=== PATIENT | male | born 1960 | race American Indian/Alaskan Native ===

== ENCOUNTER 2017-01-26 15:34 | Emergency (ER) | payer OTHER, BC ==
[2017-01-26 15:43] VITALS: BP 150/71; PULSE 98; TEMP 99.3; BMI 33.3
[2017-01-26] MEDS ORDERED: OXYCODONE/APAP 5/325MG COMBO TABLET PO ONE (15:55)
[2017-01-26] MEDS ORDERED: OXYCODONE/APAP 5/325MG COMBO TABLET ONE (15:59)
--- NOTE | 2017-01-26 16:02 | PDOC ---
Suture Removal/Wound Check HPI - History of Present Illness Chief Complaint: Pain Stated Complaint: LACERATION Time Seen by Provider: 01/26/17 15:44 History Source: Yes: Patient Exam Limitations: Yes: No Limitations Treated at: [facility] Date of Last ED visit: 01/26/17 - Previous ED Treatment Type of procedure performed on last visit: Yes: Laceration Repair (left palm) Antibiotics Prescribed: Yes - Onset of Previous Treatment Comment:: 01/26/17 16:03 pt seen in ER earlier today for laceration repair to left hand. Pt states pain 10/10 needs pain medication. Past History - Past Medical History Allergies/Adverse Reactions: Allergies christopher flavor Allergy (Verified 01/26/17 15:39) Itching strawberry Allergy (Verified 01/26/17 15:39) Itching cherries Allergy (Uncoded 01/26/17 15:39) Itching strawberries Allergy (Uncoded 01/26/17 15:39) Itching Home Medications: Ambulatory Orders Cephalexin [Keflex] 500 mg PO TID #15 capsule 01/26/17 Oxycodone HCl/Acetaminophen [Percocet 5-325 mg Tablet] 1 - 2 tab PO Q4H PRN #16 tablet MDD 8 tabs 01/26/17 General: Yes: no pertinent history, other (carpal tunnel release, ulna nerve repair left hand and wrist) Surgical History: Yes: Other (RLE SURGERY) Psych History: Yes: No Pertinent Psych Hx. - Immunization History Immunizations Up to Date: Yes - Social History Smoking History: No Smoking Status: Never smoked Number of Ciarettes Per Day: 0 Alcohol Use: occasionally Drug Use: none Suture Removal/Wound Check PE - Physical Exam Laceration/Wound Check Symptoms: reports: Pain Comments: 01/26/17 16:03 c/o pain 10/10 left hand at suture site Maximum Severity Level: Severe (middle digit left hand nv intact, limited rom of middle and ring finger due to pain) Comments: 01/26/17 16:04 left palm 2 lacerations repaired with simple interrupted sutures *Review of Systems - Review of Systems Able to Perform ROS?: Yes Constitutional: No: Symptoms Reported HEENTM: No: Symptoms Reported Respiratory: No: Symptoms reported Cardiac (ROS): No: Symptoms Reported ABD/GI: No: Symptoms Reported : No: Symptoms Reported Integumentary: Yes: See HPI Procedures - Additional Procedures Progress: 01/26/17 16:05 wound was inspected, no redness no drainage no swelling, re dressed with sterile dressing Medical Decision Making - Medical Decision Making 01/26/17 16:05 cc: pain s/p palm laceration pt states he has a hand surgeon he will will follow with next week pt agreed to xray now (initially had refused it ) will r/o fb percocet for pain 01/26/17 17:03 preliminary reading is negative on xray. I have discussed with and the pt that official read will be in within 24hrs we will call if any change noted. all dc inst given, sling was placed to elevate the hand. Pt is more comfortable on discharge. *DC/Admit/Observation/Transfer Diagnosis at time of Disposition: Encounter for wound re-check - Discharge Dispostion Disposition: HOME Condition at time of disposition: Good - Prescriptions Prescriptions: Oxycodone HCl/Acetaminophen [Percocet 5-325 mg Tablet] 1 - 2 tab PO Q4H PRN #16 tablet MDD 8 tabs PRN Reason: Severe Pain - Referrals Referrals: Iggy Nunez MD [Primary Care Provider] - - Patient Instructions Additional Instructions: follow with your hand surgeon next week keep elevated in the sling take the percocet for severe pain as directed DO NOT DRIVE, OPERATE MACHINERY OR DRINK ALCOHOL WHILE TAKING THIS MEDICATION continue the antibiotics
[2017-01-26] MEDS ORDERED: KETOROLAC TROMETHAMINE 60 MG/2 ML VIAL IM ONE (16:12)
[2017-01-26] MEDS ORDERED: KETOROLAC TROMETHAMINE 60 MG/2 ML VIAL ONE (16:33)
== END 2017-01-26 16:39 | disposition home or self-care (01) ==
LOC: JERFT 15:34
DX: Z09 Encounter for follow-up examination after completed treatment for conditions other than malignant neoplasm (principal); S61.412D Laceration without foreign body of left hand, subsequent encounter
CPT/HCPCS: 73130-TC-LT; 99281-25; 99282-25

== ENCOUNTER 2017-01-29 08:37 | Emergency (ER) | payer OTHER, BC ==
[2017-01-29 08:53] VITALS: BP 131/63; PULSE 64; TEMP 98; BMI 33.3
--- NOTE | 2017-01-29 09:14 | PDOC ---
Suture Removal/Wound Check HPI - History of Present Illness Chief Complaint: Revisit,Wound Recheck Stated Complaint: REVISIT/ INFECTED LT HAND Time Seen by Provider: 01/29/17 08:55 History Source: Yes: Patient Treated at: [facility] Date of Last ED visit: 01/26/17 - Previous ED Treatment Type of procedure performed on last visit: Yes: Laceration Repair Tetanus Immunization: Yes: Given at last ED visit Antibiotics Prescribed: Yes (keflex) Past History - Past Medical History Allergies/Adverse Reactions: Allergies christopher flavor Allergy (Verified 01/29/17 08:40) Itching strawberry Allergy (Verified 01/29/17 08:40) Itching cherries Allergy (Uncoded 01/29/17 08:40) Itching strawberries Allergy (Uncoded 01/29/17 08:40) Itching Home Medications: Ambulatory Orders Cephalexin [Keflex] 500 mg PO TID #15 capsule 01/26/17 Oxycodone HCl/Acetaminophen [Percocet 5-325 mg Tablet] 1 - 2 tab PO Q4H PRN #16 tablet MDD 8 tabs 01/26/17 Oxycodone HCl/Acetaminophen [Percocet 5-325 mg Tablet] 1 - 2 tab PO Q6H PRN #10 tab MDD 6 01/29/17 Sulfamethoxazole/Trimethoprim [Bactrim Ds Tablet] 1 each PO BID #20 tablet 01/29 General: Yes: no pertinent history Surgical History: Yes: Other (RLE SURGERY) - Immunization History Immunizations Up to Date: Yes - Social History Smoking History: No Smoking Status: Never smoked Number of Ciarettes Per Day: 0 Alcohol Use: occasionally Drug Use: none Suture Removal/Wound Check PE - Physical Exam Laceration/Wound Check Symptoms: reports: Discharge (foul smelling green discharge) Comments: 01/29/17 09:17 greenish drainage from wound Pain Intensity: 8 Comments: 01/29/17 09:17 left palm with 2 lacerations sutured closed. one laceration has 4 simple sutures and greenish foul smelling discharge. no redness no streaking no fluctuant abscess Procedures - Incision and Drainage I&D Site: Left: Other (palm) Betadine cleansed: Yes Progress: 01/29/17 09:18 sutures removed wound irrigated with copious amounts of betadine and peroxide and salline no abscess wound culture obtained and sent sterile dressing applied pt has limited ROM to middle digit which is chronic from the initial injury pt states the pain has improved neg numbness or tingling. Medical Decision Making - Medical Decision Making 01/29/17 09:19 cc: wound check infected wound without surrounding cellulitus or abscess sutures removed wound culture obtained wound irrigated sterile dressing placed added Bactrim to the keflex pt asked for more percocet will give 10 pills pt has apt with (pt's own hand surgeon in [place]) pt and agree with plan pt is NOT TO USE left hand around the house, yard work or any thing strenuous. pt is to rest the hand and keep clean and dry *DC/Admit/Observation/Transfer Diagnosis at time of Disposition: Encounter for wound re-check - Discharge Dispostion Disposition: HOME Condition at time of disposition: Good - Prescriptions Prescriptions: Sulfamethoxazole/Trimethoprim [Bactrim Ds Tablet] 1 each PO BID #20 tablet Oxycodone HCl/Acetaminophen [Percocet 5-325 mg Tablet] 1 - 2 tab PO Q6H PRN #10 tab MDD 6 PRN Reason: Severe Pain - Patient Instructions Additional Instructions: follow with on thr as scheduled avoid using the hand to do strenuous work Let the wound air dry you should wash the wound with antibacterial soap and water once a day no peroxide take Bactrim as directed take percocet for sever pain take motrin for mild to moderate pain Return if any fever, chills, redness streaking up hand or arm or any other concerns
== END 2017-01-29 09:23 | disposition home or self-care (01) ==
LOC: JER 08:37 → JERFT 08:37
DX: S61.412D Laceration without foreign body of left hand, subsequent encounter (principal); L08.9 Local infection of the skin and subcutaneous tissue, unspecified; X58.XXXD Exposure to other specified factors, subsequent encounter; Y92.89 Other specified places as the place of occurrence of the external cause; Z48.02 Encounter for removal of sutures
CPT/HCPCS: 87070; 87205; 99281-25

== ENCOUNTER 2017-08-21 20:45 | Emergency (ER) | payer OTHER, BC ==
--- NOTE | 2017-08-21 21:05 | PDOC ---
Rapid Medical Evaluation Chief Complaint: Back Pain Time Seen by Provider: 08/21/17 21:01 Medical Evaluation: Allergies Allergy/AdvReac Type Severity Reaction Status Date / Time christopher flavor Allergy Itching Verified 08/21/17 20:54 strawberry Allergy Itching Verified 08/21/17 20:54 cherries Allergy Itching Uncoded 08/21/17 20:54 strawberries Allergy Itching Uncoded 08/21/17 20:54 08/21/17 21:01 I have performed a brief in-person evaluation of this patient. The patient presents with a chief complaint of: Back Pain Pertinent physical exam findings: Patient unable to stand. I have ordered the following: The patient will proceed to the ED for further evaluation. Dr. Octavio Quijano MD ([facility]). 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
[2017-08-21 21:10] VITALS: BP 154/80; PULSE 81; TEMP 97.9; BMI 30.8
--- NOTE | 2017-08-21 22:25 | PDOC ---
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 Patient report taking Celebrex, Gabapentin, Voltoren for pain management, prescribed by his Orthopedist Dr. Octavio Quijano. He denies recently injury, fall, or trauma, CP, Abd pain, n/v/d, SOB, diff breathing, fever, rash, dysuria, hematuria, or any other complaints at this time. Associated left groin pain w/o dysuria or rectal bleeding. Occurred: reports: other (3 days.). denies: just prior to arrival, this morning , this afternoon, this evening, yesterday, last week Severity: reports: moderate. denies: mild, severe Pain Location: reports: lower extremity, other (Groin). denies: none, abdomen, back, chest, face, head, mouth, neck, pelvis, upper extremity Method of Injury: Yes: other (See HPI). No: unknown, assault, direct blow, fall , motor vehicle crash Modifying Factors: improves with: pain medication. worse with: None, cold therapy, immobilization, rest, other Past History - Travel Traveled outside of the country in the last 30 days: No Close contact w/someone who was outside of country & ill: No - Past Medical History Allergies/Adverse Reactions: Allergies Allergy/AdvReac Type Severity Reaction Status Date / Time christopher flavor Allergy Itching Verified 08/21/17 20:54 strawberry Allergy Itching Verified 08/21/17 20:54 cherries Allergy Itching Uncoded 08/21/17 20:54 strawberries Allergy Itching Uncoded 08/21/17 20:54 Home Medications: Ambulatory Orders Acetaminophen [Tylenol] 650 mg PO QID PRN 08/21/17 Celecoxib [Celebrex -] 200 mg PO BID 08/21/17 Diazepam [Valium] 10 mg PO TID PRN #12 tablet MDD 3 tabs 08/22/17 Methocarbamol [Robaxin -] 500 mg PO TID PRN #21 tablet MDD 3 tabs 08/22/17 Oxycodone HCl/Acetaminophen [Endocet 7.5-325 mg Tablet] 1 each PO Q6H PRN #20 tablet MDD 4 tabs 08/22/17 Anemia: No Asthma: No Cancer: No Cardiac Disorders: No CVA: No COPD: No CHF: No Dementia: No Diabetes: No GI Disorders: No Disorders: No HTN: No Hypercholesterolemia: No Liver Disease: No Seizures: No Thyroid Disease: No - Surgical History Abdominal Surgery: No Appendectomy: No Cardiac Surgery: No Cholecystectomy: No Lung Surgery: No Neurologic Surgery: No Orthopedic Surgery: Yes (r knee ligament repair) - Immunization History Immunization Up to Date: Yes - Suicide/Smoking/Psychosocial Hx Smoking Status: No Smoking History: Never smoked Have you smoked in the past 12 months: No Number of Cigarettes Smoked Daily: 0 Information on smoking cessation initiated: No Hx Alcohol Use: No Drug/Substance Use Hx: No Substance Use Type: None Hx Substance Use Treatment: No Trauma Specific PMHX - Complaint Specific PMHX Arthritis: No Back Injury: Yes Neck Injury: No Hx Sacro Iliac Joint Dysfunction: No Review of Systems - Review of Systems Able to Perform ROS?: Yes Is the patient limited [place] proficient: No : Yes: Other (Groin Pain) Musculoskeletal: Yes: Back Pain, Joint Pain All Other Systems: Reviewed and Negative *Physical Exam - Vital Signs Last Vital Signs Temp Pulse Resp BP Pulse Ox 97.9 F 81 24 154/80 98 08/21/17 20:58 08/21/17 20:58 08/21/17 20:58 08/21/17 20:58 08/21/17 20:58 - Physical Exam General Appearance: Yes: Nourished, Appropriately Dressed, Moderate Distress. No: Apparent Distress, Mild Distress, Severe Distress Respiratory/Chest: positive: Lungs Clear, Normal Breath Sounds. negative: Chest Tender, Respiratory Distress, Accessory Muscle Use, Labored Respiration, Rapid RR Cardiovascular: positive: Regular Rhythm, Regular Rate Gastrointestinal/Abdominal: positive: Normal Bowel Sounds, Soft, Distended. negative: Guarding, Rebound, Tenderness Male Genitalia: positive: normal genitalia, other (No torsion identified, no tenderness, swelling, pain, pressure on examination. Both testes descended, round contour, soft to touch.). negative: discharge, testicular tenderness, testicular mass, epididymus tender, inguinal hernia, hernia Musculoskeletal: positive: Normal Inspection, Vertebral Tenderness (Lumbar midline and paraspinal tenderness on examination.). negative: CVA Tenderness, Decreased Range of Motion Extremity: positive: Normal Capillary Refill, Normal Inspection, Normal Range of Motion. negative: Pedal Edema, Swelling, Calf Tenderness, Erythema, Inflammation Integumentary: positive: Normal Color, Dry, Warm Neurologic: positive: product developer II-XII NML intact, Fully Oriented, Alert, Normal Mood/ Affect, Normal Response, Motor Strength 02/01 ED Treatment Course - LABORATORY CBC & Chemistry Diagram: 08/21/17 22:10 08/21/17 22:10 Medical Decision Making - Medical Decision Making 08/22/17 01:10 Patient reports marked improvement in his symptoms. He states symptoms are not totally gone but much better. *DC/Admit/Observation/Transfer Diagnosis at time of Disposition: Chronic low back pain with left-sided sciatica Qualifiers: Back pain laterality: left Qualified Code(s): M54.42 - Lumbago with sciatica, left side; G89.29 - Other chronic pain; G89.29 - Other chronic pain - Discharge Dispostion Disposition: HOME Condition at time of disposition: Improved Admit: No - Prescriptions Prescriptions: Diazepam [Valium] 10 mg PO TID PRN #12 tablet MDD 3 tabs PRN Reason: Back Pain Methocarbamol [Robaxin -] 500 mg PO TID PRN #21 tablet MDD 3 tabs PRN Reason: Back Pain Oxycodone HCl/Acetaminophen [Endocet 7.5-325 mg Tablet] 1 each PO Q6H PRN #20 tablet MDD 4 tabs PRN Reason: Severe Pain - Referrals Referrals: Iggy Nunez MD [Primary Care Provider] - - Patient Instructions Printed Discharge Instructions: DI for Low Back Pain Additional Instructions: Follow up with your Orthopedic Surgeon as scheduled for surgery on Sep 08. Take medications as prescribed. Do not drive, drink alcohol, or operate heavy machinery while taking Endocet, Valium, or Robaxin. Return if symptoms worsen or any concerns for further evaluation. Print Language: CHINESE - Post Discharge Activity
[2017-08-21] MEDS ORDERED: ONDANSETRON 4 MG/2 ML VIAL IVPUSH ONE (22:38)
[2017-08-21] MEDS ORDERED: morphine CARPU-JECT 4 MG/1 ML DISP.SYRIN IVPUSH ONE (22:38)
[2017-08-21] MEDS ORDERED: SODIUM CHLORIDE 500 ML IV STA (22:38)
[2017-08-21 22:47] LABS: BASOPHIL 0.8 % (0-2.0); EOSINOPHIL 2.2 % (0-4.5); MCH 30.1 pg (25.7-33.7); MCHC 34.1 g/dl (32.0-35.9); MEAN CELL VOLUME 88.3 fl (80-96); MEAN PLT VOLUME 7.5 fl (7.5-11.1); PLATELET COUNT 239 K/MM3 (134-434); RDW 14.5 % (11.9-15.9); WHITE BLOOD COUNT 7.5 K/mm3 (4.0-10.0)
[2017-08-21] MEDS ORDERED: morphine SULFATE 4 MG/ML VIAL ONE (22:48)
[2017-08-21] MEDS ORDERED: ONDANSETRON 4 MG/2 ML VIAL ONE ×2 (22:49→22:57)
[2017-08-21 23:10] LABS: ALBUMIN 3.9 g/dl (3.4-5.0); ALK PHOS 84 U/L (45-117); ANION GAP 8 (8-16); BILIRUBIN,TOTAL 0.3 mg/dL (0.2-1.0); CALCIUM 8.8 mg/dL (8.5-10.1); CO2 29 mmol/L (21-32); CREATININE 1.1 mg/dL (0.7-1.3); GLUCOSE,RANDOM 94 mg/dL (74-106); SGOT/AST 24 U/L (15-37); SGPT/ALT 49 U/L (12-78); TOT PROT 7.2 g/dl (6.4-8.2)
--- NOTE | 2017-08-21 23:21 | PDOC ---
*Physical Exam - Vital Signs Last Vital Signs Temp Pulse Resp BP Pulse Ox 97.9 F 81 24 154/80 98 08/21/17 20:58 08/21/17 20:58 08/21/17 20:58 08/21/17 20:58 08/21/17 20:58 ED Treatment Course - LABORATORY CBC & Chemistry Diagram: 08/21/17 22:10 08/21/17 22:10 - ADDITIONAL ORDERS Additional order review: Laboratory Results 08/21/17 22:10 Sodium 141 Potassium 3.9 Chloride 104 Carbon Dioxide 29 Anion Gap 8 BUN 30 H Creatinine 1.1 Creat Clearance w eGFR > 60 Random Glucose 94 Calcium 8.8 Total Bilirubin 0.3 AST 24 ALT 49 Alkaline Phosphatase 84 Total Protein 7.2 Albumin 3.9 08/21/17 22:10 RBC 4.70 MCV 88.3 MCHC 34.1 RDW 14.5 MPV 7.5 Neutrophils % 64.0 Lymphocytes % 23.0 D Monocytes % 10.0 Eosinophils % 2.2 Basophils % 0.8 - Medications Given in the ED: ED Medications Discontinued Medications Generic Name Dose Route Start Last Admin Trade Name Freq PRN Reason Stop Dose Admin Morphine Sulfate 4 mg 08/21/17 22:38 08/21/17 23:05 Morphine Injection - IVPUSH 08/21/17 22:39 4 mg ONCE ONE Administration Ondansetron HCl 4 mg 08/21/17 22:38 08/21/17 23:05 Zofran Injection IVPUSH 08/21/17 22:39 4 mg ONCE ONE Administration Medical Decision Making - Medical Decision Making 08/21/17 23:20 agree with care from VERÓNICA Khan *DC/Admit/Observation/Transfer Diagnosis at time of Disposition: Chronic low back pain with left-sided sciatica - Discharge Dispostion Disposition: HOME Condition at time of disposition: Improved - Prescriptions Prescriptions: Diazepam [Valium] 10 mg PO TID PRN #12 tablet MDD 3 tabs PRN Reason: Back Pain Diazepam [Valium] 10 mg PO Q8H PRN #21 tablet MDD 3 tabs PRN Reason: Musculoskeletal Neck Pain Methocarbamol [Robaxin -] 500 mg PO TID PRN #21 tablet MDD 3 tabs PRN Reason: Back Pain Methocarbamol [Robaxin -] 500 mg PO TID PRN #21 tablet PRN Reason: Back Pain Oxycodone HCl/Acetaminophen [Endocet 7.5-325 mg Tablet] 1 each PO Q6H PRN #20 tablet MDD 4 tabs PRN Reason: Severe Pain Oxycodone HCl/Acetaminophen [Endocet 7.5-325 mg Tablet] 1 each PO Q6H PRN #20 tablet MDD 4 tabs PRN Reason: Severe Pain - Referrals Referrals: Iggy Nunez MD [Primary Care Provider] - - Patient Instructions Printed Discharge Instructions: DI for Low Back Pain Additional Instructions: Follow up with your Orthopedic Surgeon as scheduled for surgery on Sep 08. Take medications as prescribed. Do not drive, drink alcohol, or operate heavy machinery while taking Endocet, Valium, or Robaxin. Return if symptoms worsen or any concerns for further evaluation. Print Language: LITHUANIAN - Post Discharge Activity
[2017-08-22] MEDS ORDERED: KETOROLAC TROMETHAMINE 30 MG/1 ML VIAL IM ONE (00:04)
[2017-08-22] MEDS ORDERED: diazePAM CARPU-JECT 10 MG/2 ML DISP.SYRIN IVPUSH ONE (00:04)
[2017-08-22] MEDS ORDERED: LORazepam 2 MG/ML SDV VIAL ONE (00:30)
[2017-08-22] MEDS ORDERED: KETOROLAC TROMETHAMINE 30 MG/1 ML VIAL ONE (00:31)
[2017-08-22 00:39] LABS: PH,URINE 5.5 (5.0-8.0); URINE APPEARANCE CLEAR; URINE BILIRUBIN NEGATIVE (NEGATIVE); URINE BLOOD NEGATIVE (NEGATIVE); URINE COLOR YELLOW; URINE GLUCOSE (UA) NEGATIVE (NEGATIVE); URINE KETONE NEGATIVE (NEGATIVE); URINE NITRITE NEGATIVE (NEGATIVE); URINE PROTEIN NEGATIVE (NEGATIVE); URINE UROBILINOGEN 0.2 mg/dL (0.2-1.0)
[2017-08-22 12:14] LABS: URINE LEUK ESTERASE Negative (NEGATIVE)
== END 2017-08-22 01:48 | disposition home or self-care (01) ==
LOC: JER 20:45
DX: M54.42 Lumbago with sciatica, left side (principal)
CPT/HCPCS: 36415; 72131-TC; 80053; 81003; 85025; 99282-25

== ENCOUNTER 2017-08-25 09:23 | Emergency (ER) | payer OTHER, BC ==
[2017-08-25 09:30] VITALS: BP 113/78; PULSE 74; TEMP 98.2; BMI 31.4
--- NOTE | 2017-08-25 10:52 | PDOC ---
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 Patient report taking Celebrex, Gabapentin, Voltoren for pain management, but had to stop gabapentin due to undesirable side effects of psychosis. He denies recently injury, fall, or trauma, CP, Abd pain, n/v/d, SOB, diff breathing, fever, rash, dysuria, hematuria, or any other complaints at this time. Past History - Past Medical History Allergies/Adverse Reactions: Allergies Allergy/AdvReac Type Severity Reaction Status Date / Time christopher flavor Allergy Itching Verified 08/21/17 20:54 indomethacin [From Indocin] Allergy Verified 08/25/17 09:26 indomethacin sodium Allergy Verified 08/25/17 09:26 [From Indocin] strawberry Allergy Itching Verified 08/21/17 20:54 gabapentin AdvReac Verified 08/25/17 12:38 cherries Allergy Itching Uncoded 08/21/17 20:54 strawberries Allergy Itching Uncoded 08/21/17 20:54 Home Medications: Ambulatory Orders Celecoxib [Celebrex -] 200 mg PO BID 08/21/17 Diazepam [Valium] 10 mg PO Q8H PRN #21 tablet MDD 3 tabs 08/22/17 Methocarbamol [Robaxin -] 500 mg PO TID PRN #21 tablet 08/22/17 Oxycodone HCl/Acetaminophen [Endocet 7.5-325 mg Tablet] 1 each PO Q6H PRN #20 tablet MDD 4 tabs 08/22/17 Nortriptyline HCl [Pamelor -] 25 mg PO HS #100 capsule 08/25/17 Oxycodone HCl 5 mg PO QID PRN 3 Days #12 capsule MDD 20mg 08/25/17 Valacyclovir HCl [Valtrex -] 1,000 mg PO TID 7 Days #21 tablet 08/25/17 Anemia: No Asthma: No Cancer: No Cardiac Disorders: No CVA: No COPD: No CHF: No DVT: No Dementia: No Diabetes: No Dialysis: No GI Disorders: No Disorders: No HTN: No Hypercholesterolemia: No Liver Disease: No Seizures: No Thyroid Disease: No - Surgical History Abdominal Surgery: No Appendectomy: No Cardiac Surgery: No Cholecystectomy: No Lung Surgery: No Neurologic Surgery: No Orthopedic Surgery: Yes (r knee ligament repair) - Immunization History Immunization Up to Date: Yes - Suicide/Smoking/Psychosocial Hx Smoking Status: No Smoking History: Never smoked Have you smoked in the past 12 months: No Number of Cigarettes Smoked Daily: 0 Information on smoking cessation initiated: No Hx Alcohol Use: No Drug/Substance Use Hx: No Substance Use Type: None Hx Substance Use Treatment: No Review of Systems - Review of Systems Able to Perform ROS?: Yes Is the patient limited [place] proficient: No Constitutional: No: Symptoms Reported HEENTM: No: Symptoms Reported Respiratory: No: Symptoms reported Cardiac (ROS): No: Symptoms Reported ABD/GI: No: Symptoms Reported : No: Symptoms Reported Musculoskeletal: No: Symptoms Reported Integumentary: Yes: See HPI Neurological: Yes: Paresthesia. No: Tremors Psychiatric: No: Anxiety, Depression, Frequent Crying Endocrine: Yes: See HPI *Physical Exam - Vital Signs Last Vital Signs Temp Pulse Resp BP Pulse Ox 98.2 F 74 16 113/78 96 08/25/17 09:26 08/25/17 09:26 08/25/17 09:26 08/25/17 09:26 08/25/17 09:26 - Physical Exam Musculoskeletal: positive: Other (Left sided drop foot new) Integumentary: positive: Other (vesicular rash along left sided: L5 (plantar, dorsal foot, anterior leg left thigh and left hip), L4 on either side of leg ) ED Treatment Course - LABORATORY CBC & Chemistry Diagram: 08/25/17 11:56 08/25/17 11:56 Medical Decision Making - Medical Decision Making 08/25/17 12:43 08/25/17 12:39 Dr. Goldsmith consulted for neuro eval. 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 Will order outpatient prescription for Valacyclovir and nortriptiline as per Dr. Goldsmith's orders Referal to Dr. Rust for pain management. 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 Medina and Dr. Goldsmith when discharged. See the both of them within 1 to 2 days. Use prescribed medication as described. Come back to the ER for any new, worsening or concerning symptom. - Post Discharge Activity
[2017-08-25] MEDS ORDERED: LIDOCAINE HCL 5% TOP OINTMENT 50 GM TUBE TP ONE (11:06)
[2017-08-25] MEDS ORDERED: ACETAMINOPHEN 325 MG TABLET (FP) PO ONE (11:07)
[2017-08-25] MEDS ORDERED: ACETAMINOPHEN 325 MG TABLET (FP) ONE (11:22)
[2017-08-25] MEDS ORDERED: LIDOCAINE HCL 2% JELLY (5 ML/TUBE) ONE (11:22)
[2017-08-25] MEDS ORDERED: valACYclovir HCL 1000 MG TABLET PO ONE (11:56)
[2017-08-25] MEDS ORDERED: oxyCODONE HCL 5 MG TABLET PO ONE (11:57)
[2017-08-25] MEDS ORDERED: DOCUSATE SODIUM 100 MG CAPSULE (FP) PO ONE (11:57)
[2017-08-25] MEDS ORDERED: morphine CARPU-JECT 4 MG/1 ML DISP.SYRIN IVPUSH ONE (11:59)
[2017-08-25 12:02] LABS: BASOPHIL 0.5 % (0-2.0); EOSINOPHIL 2.6 % (0-4.5); MCHC 33.1 g/dl (32.0-35.9); MEAN CELL VOLUME 87.7 fl (80-96); MEAN PLT VOLUME 7.1 fl (7.5-11.1); NEUTROPHILS 55.5 % (42.8-82.8); PLATELET COUNT 238 K/MM3 (134-434); RDW 14.5 % (11.9-15.9); WHITE BLOOD COUNT 7.9 K/mm3 (4.0-10.0)
[2017-08-25] MEDS ORDERED: morphine SULFATE 4 MG/ML VIAL ONE (12:06)
[2017-08-25 12:38] LABS: ALBUMIN 3.5 g/dl (3.4-5.0); ANION GAP 6 (8-16); BILIRUBIN,TOTAL 0.6 mg/dL (0.2-1.0); C-REACTIVE PROTEIN 1.4 MG/DL (0.00-0.3); CO2 30 mmol/L (21-32); GLUCOSE,RANDOM 117 mg/dL (74-106); SGOT/AST 23 U/L (15-37); SGPT/ALT 52 U/L (12-78)
--- NOTE | 2017-08-25 12:38 | CON.NEURO ---
Consult Consult Specialty:: Neurology Referred by:: Dr. 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 The pain is burning in quality with severe hyperesthesia on touch. He also has difficulty dorsiflexing his left foot. Patient report taking Celebrex, Gabapentin, Voltaren for pain management, prescribed by his Orthopedist Dr. Octavio Quijano. He denies recently injury, fall, or trauma, CP, Abd pain, n/v/d, SOB, diff breathing, fever, rash, dysuria, hematuria, or any other complaints at this time. 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 Place of : [facility] Home Medications - Allergies Allergies/Adverse Reactions: Allergies Allergy/AdvReac Type Severity Reaction Status Date / Time christopher flavor Allergy Itching Verified 08/21/17 20:54 indomethacin [From Indocin] Allergy Verified 08/25/17 09:26 indomethacin sodium Allergy Verified 08/25/17 09:26 [From Indocin] strawberry Allergy Itching Verified 08/21/17 20:54 gabapentin AdvReac Verified 08/25/17 12:38 cherries Allergy Itching Uncoded 08/21/17 20:54 strawberries Allergy Itching Uncoded 08/21/17 20:54 - Home Medications Home Medications: Ambulatory Orders Celecoxib [Celebrex -] 200 mg PO BID 08/21/17 Diazepam [Valium] 10 mg PO Q8H PRN #21 tablet MDD 3 tabs 08/22/17 Methocarbamol [Robaxin -] 500 mg PO TID PRN #21 tablet 08/22/17 Oxycodone HCl/Acetaminophen [Endocet 7.5-325 mg Tablet] 1 each PO Q6H PRN #20 tablet MDD 4 tabs 08/22/17 Nortriptyline HCl [Pamelor -] 25 mg PO HS #100 capsule 08/25/17 Valacyclovir HCl [Valtrex -] 1,000 mg PO TID 7 Days #21 tablet 08/25/17 Physical Exam-Neuro Vital Signs: Vital Signs Temperature 98.2 F 08/25/17 09:26 Pulse Rate 74 08/25/17 09:26 Respiratory Rate 16 08/25/17 09:26 Blood Pressure 113/78 08/25/17 09:26 O2 Sat by Pulse Oximetry (%) 96 08/25/17 09:26 Labs: CBC, BMP 08/25/17 11:56 Problem List - Problems (1) Lumbosacral 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 Recommend as you have done starting acyclovir and also nortriptyline 25 mg qhs for nerve pain. He'll need rehab to work on his foot and provide a brace for the foot drop. Thanks. Code(s): M54.17 - RADICULOPATHY, LUMBOSACRAL REGION; B02.9 - ZOSTER WITHOUT COMPLICATIONS
[2017-08-25 12:39] LABS: ALK PHOS 75 U/L (45-117)
[2017-08-25 13:01] LABS: ERYTHROCYTE SEDIMENTATION RATE 16 mm/hr (0-20)
--- NOTE | 2017-08-25 13:42 | PDOC ---
Attending Attestation - Resident Resident Name: Link Merino - ED Attending Attestation I have performed the following: I have examined & evaluated the patient, The case was reviewed & discussed with the resident, I agree w/resident's findings & plan, Exceptions are as noted - HPI HPI: 08/25/17 13:34 56-year-old male with a history of multiple back surgeries presents with 1 day of rash and 4 days of left lower extremity pain.The patient reports he was seen here a few days ago for the leg pain but did not have a rash at the time. He was prescribed Percocet, Valium for pain control which she states has only minimally been helping. He also reports 2 days of weakness in his left foot and states he is unable to pick his foot up. He denies any fevers, chills, chest pain, shortness of breath, nausea, vomiting, diarrhea, abdominal pain. - Physicial Exam PE: 08/25/17 13:38 GENERAL: Awake, alert, and fully oriented, in no acute distress HEAD: No signs of trauma EYES: PERRLA, EOMI, sclera anicteric, conjunctiva clear ENT: Auricles normal inspection, hearing grossly normal, nares patent, oropharynx clear without exudates. Moist mucosa NECK: Normal ROM, supple, no lymphadenopathy, JVD, or masses LUNGS: Breath sounds equal, clear to auscultation bilaterally. No wheezes, and no crackles HEART: Regular rate and rhythm, normal S1 and S2, no murmurs, rubs or gallops ABDOMEN: Soft, nontender, normoactive bowel sounds. No guarding, no rebound. No masses EXTREMITIES: Normal range of motion, no edema. No clubbing or cyanosis. No cords, erythema, or tenderness NEUROLOGICAL: Normal speech, cranial nerves intact, negative pronator drift, 4/ 5 dorsiflexion of L foot, remainder of LLE 5/5 strength. 5/5 strength in remaining extremities,normal cerebellar exam, normal gait, normal reflexes and tone SKIN: In L4/L5 distribution, multiple erythematous papulues, some vesicles, some unroofed. - Medical Decision Making 08/25/17 13:43 56-year-old male presents with shingles in L4/L5 distribution with a left foot drop. Neurology was consulted due to the foot drop and Dr. Goldsmith evaluated the patient and states that shingles could cause a foot drop on rare occasions. He recommends treatment of shingles and he will see him in the office tomorrow. Will discharge the patient with antivirals and pain medication. I discussed the physical exam findings, ancillary test results and final diagnoses with the patient. I answered all of the patient's questions. The patient was satisfied with the care received and felt comfortable with the discharge plan and treatment plan. The patient will call their primary care physician within 24 hours to arrange follow-up and will return to the Emergency Department with any new, persistent or worsening symptoms.
== END 2017-08-25 13:58 | disposition home or self-care (01) ==
LOC: JER 09:23
PROC: 3E033NZ Introduction of Analgesics, Hypnotics, Sedatives into Peripheral Vein, Percutaneous Approach (ICD-10-PCS; principal; 2017-08-25)
DX: B02.29 Other postherpetic nervous system involvement (principal); M54.16 Radiculopathy, lumbar region
CPT/HCPCS: 36415; 80053; 85025; 85651; 86140; 96374; 99282-25

== ENCOUNTER 2021-02-13 09:45 | Emergency (ER) | payer OTHER, BC ==
[2021-02-13 10:01] VITALS: BP 146/76; PULSE 90; BMI 33.3
== END 2021-02-13 12:37 | disposition home or self-care (01) ==
LOC: JER 09:45
DX: J06.9 Acute upper respiratory infection, unspecified (principal); J18.9 Pneumonia, unspecified organism; Z11.52 Encounter for screening for COVID-19
CPT/HCPCS: 71046-TC-FY; 99284-25; C9803; U0003; U0005